=== PATIENT | female | born 1970 | race Caucasian/White ===

== ENCOUNTER 2017-01-04 09:55 | Day surgery (SDC) | payer OTHER ==
[~2017-01-04 09:55] MED LIST: LIDOCAINE HCL 1% MPF SOL ONE; PROPOFOL 500 MG/50 ML EMU IV ONE
[2017-01-04 11:43] VITALS: PULSE 72
[2017-01-04 12:05] VITALS: BP 142/89; RESP 18; TEMP 97.4; O2SAT 96
== END 2017-01-04 12:42 | disposition home or self-care (01) | DRG 392 ==
LOC: SURG 09:55
PROVIDERS: ATTEND Surgery
DX: K52.9 Noninfective gastroenteritis and colitis, unspecified (principal); Z87.19 Personal history of other diseases of the digestive system
CPT/HCPCS: 99001; J2001; J2704